=== PATIENT | male | born 1970 | race Caucasian/White ===

== ENCOUNTER → 2016-10-06 | Outpatient (CLI) | payer BC ==
[~2016-10-06] MED LIST: ASPI81TA28 PO; CETI10TA99 PO; MULT-506 PO; OMEG10007 PO; PSEU30TA20 PO
--- NOTE | 2016-10-07 06:22 | PAP/PSG TECHNICIAN REPORT ---
[facility] Order Puller Polysomnogram Report Study name: None Report date: 10/07/2016 Study date: 10/06/2016 Referring Physician: Luis Mcguire M.D. Name: LUIS FRITZ Interpreting Physician: Leon Mcguire M.D. Date of : 1970 Order Puller: YANE Wiley. Sex: Male Age: 46 StudyType: PSG Weight: 199 lbs Height: 46 years, Height 6' 0" Neck Circum:16inches BMI: 26.99 Medications: Sudafed, Loratadine, Vitamins, ASA 81 mg Patient History 46 yr. old male here for a diagnostic sleep study without ETC02 monitoring in room #6. Patient complains of snoring. He had 3 failed HSTs. Neck Circ.= 16 inches. Parameters Monitored NPSG: E1-M2, E2-M1, Fp1-M2, Fp2-M1, F3-M2, F4-M2, F4-M1, C3-M2, C4-M2, C4-M1, O1-M2, O2-M2, O2-M1, T3-M2, T4-M1, P3-M2, P4-M1, CHIN1, CHIN2, HR, EKG, Legs, PFLOW, SNOR, FLOW, CFLOW, Tidal Volume, THOR, ABDO, SpO2, PLTH, CPRESS, ETCO2 Wave, ETCO2, pH Sleep Architecture Sleep Stages Time at Lights Off 9:50:40 PM STAGES Time (min.) TST (%) Time at Lights On 5:32:40 AM Wake 68.5 -- Total Recording Time (TRT) 462.00 min. N1 22.0 6 Total Sleep Period (TSP) 406.0 min. N2 252.5 64 Total Sleep Time (TST) 393.5min. N3 58.0 15 Awake Time 68.5 min. REM 61.0 16 Wake after Sleep Onset 12.5 min. Sleep Efficiency (SE) 85 % Sleep Onset Latency (KIRILL) 56.0 min. Number of Stage 1 Shifts None Awakenings 12 Stage Changes 80 Number of REM periods 10 REM 61.0 16 REM Latency 77.0 min. NREM 332.5 84 Body Position Analysis Supine Right Left Side Prone Vertical Total Sleep Time (min.) 347.1 113.0 0.0 112.99 0.0 0.3 Total Sleep Time (%) 71% 29% 0% 29 0% N/A% Total Sleep Time REM (min.) 14.5 46.5 0.0 None 0.0 0.0 Total Sleep Time NREM (min.) 266.0 66.5 0.0 None 0.0 0.0 Intermittent Wake (min.) 66.6 1.6 0.0 None 0.0 0.3 Total Sleep Period (%) 72% None None None None None Arousals Myoclonus (PLM) * Events Count Index Events Count Index Spontaneous 18 3 Events Awake (PLMW) 73 63.9 Respiratory 12 2.0 Events Asleep w/ Arousal (PLMA) 20 3.0 PLM 20 3 Events Asleep w/o Arousal (PLMS) 79 12.0 Snoring 10 2 Total Asleep 99 15.1 Total 60 9 Total 172 22 Respiratory Analysis * CA OA MA CH H RERA Total Count 0 0 0 0 32 2 32 Index 0.0 0.0 0.0 0 4.9 0 5.2 Mean Duration 0.0 0.0 0.0 0.00 27.5 26.3 27.4 Longest Duration 0.0 0.0 0.0 0.00 0.0 37.6 52.9 Respiratory Event Summary Total Supine ~Supine Right Left Prone REM NREM Apneas Count 0 0 0 0 N/A N/A 0 0 Index 0.0 0 0 0.0 N/A N/A 0 0 Hypopneas (4% Desat) Count 32 22 10 10 N/A N/A 13 19 Index 4.9 4.7 5 5.3 N/A N/A 12.8 3.4 Apneas & All Hypopneas Count 32 22 10 10 N/A N/A 13 19 Index 4.9 5 5 5 N/A N/A 12.8 3.4 Respiratory Events ([employer]+All Hyp+RERA) Count 32 23 11 11 N/A N/A 13 19 Index 5.2 5 6 5.8 N/A N/A 13.8 3.6 Respiratory Related Arousal Count 12 23 4 4 N/A N/A 6 7 Index 2.0 2 2 2 N/A N/A 6 1 Snoring Analysis Supine Right Left Prone REM NREM Total Snore duration 9.5 min Snores count 275 164 N/A N/A 59 380 439 Snore mean duration 1.3 Sec Snores index 59 87 N/A N/A 58.0 68.6 66.9 TST with snoring (%) 2.4% Desaturation Event Summary: Minimum %SpO2 Event Count Mean/Min/Max Duration(sec.) Desaturation Index % Time In Bed > 90 76 30.5 / 10.3 / 55.5 12.3 82.3 86 - 90 3 25.2 / 15.5 / 32.5 2.3 17.5 81 - 85 1 4.8 / 4.8 / 4.8 141.2 0.1 76 - 80 0 N/A 0.0 0.0 71 - 75 0 N/A 0.0 0.0 66 - 70 0 N/A 0.0 0.0 61 - 65 0 N/A 0.0 0.0 56 - 60 0 N/A 0.0 0.0 51 - 55 0 N/A 0.0 0.0 < 50 0 N/A 0.0 0.0 Total REM NREM Awake <50% 0.0 min. 0.0 min. 0.0 min. 0.0 min. 51 - 60% 0.0 min. 0.0 min. 0.0 min. 0.0 min. 61 - 70% 0.0 min. 0.0 min. 0.0 min. 0.0 min. 71 - 80% 0.1 min. 0.0 min. 0.1 min. 0.0 min. 81 - 90% 79.2 min. 12.9 min. 64.6 min. 1.8 min. 91 - 100% 369.6 min. 46.7 min. 258.9 min. 63.9 min. Average 92 92 92 93 Minimum SpO2 78 83 80 78 Desaturation Event Index 10.0 25.6 8.1 5.3 # Desat. Events below 89% 15 8 5 2 Time(%) with Saturation below 89% 1.4 0.8 0.5 0.1 Time(min.) with Saturation below 89% 6.3 3.6 2.4 0.3 Time (mins) REM (mins) NREM (mins) % of TST SpO2 Below 90% 56 21 N35 5.7 SpO2 Below 88% 6 0 0 0 Heart Rate Analysis Min (bpm) Max (bpm) Average (bpm) Awake 55 237 74 NREM 46 127 65 REM 50 127 62 Overall 46 127 65 Supplemental O2 Values Minimum O2 level: None Value Start Time End Time Order Puller Comments Mr. Fritz slept in the right and supine positions. No cardiac arrhythmia noted. Some leg movements were noted. No bruxism noted. Snoring was noted and scored as a 2 on a scale of 1 through 5. (0=no snoring, 5=snoring loud enough to be heard through a closed door or down the terrell way) He did not use the restroom during the night. He stated that he slept a little worse than when at home. The final report will be interpreted and signed by a sleep physician. The completed physician report will then be placed in the patient medical record. Therapy (cm H2O) 0 TIB (min.) 462.0 TST (min.) 393.5 Sleep Onset (min.) 56.0 REM Onset From Sleep (min.) 77.0 Sleep Efficiency % 85 Wakefulness (%) 15 Wakefulness (min.) 68.5 NREM 1 (%) 6 NREM 1 (min.) 22.0 NREM 2 (%) 64 NREM 2 (min.) 252.5 NREM 3 (%) 15 NREM 3 (min.) 58.0 REM (%) 16 REM (min.) 61.0 # Arousals 60 Arousal Index 9 # Snore 439 Snore Index 66.9 AHI 4.9 AHI Supine 5 AHI Non-Supine 5 NREM AHI 3.4 REM AHI 12.8 RDI 5.2 # Obstructive Apnea 0 # Central Apnea 0 # Mixed Apnea 0 # Hypopneas 32 RERAs 2 Total Respiratory Events 37 Time Below SpO2 89% (min.) 6.0 Mean NREM SpO2 (%) 92 Mean REM SpO2 (%) 92 Mean Sleep SpO2 (%) 92 Min NREM SpO2 (%) 80 Min REM SpO2 (%) 83 Position Supine (min.) 347.1 Position Non-supine (min.) 113.0 LM Index Sleep 15.1 LM Index NREM 11.0 LM Index REM 37.4 Mean Heart Rate (bpm) 65 Min Heart Rate (bpm) 46
--- NOTE | 2016-10-12 07:21 | POLYSOMNOGRAPH REPORT ---
REFERRING PERSON: Dr. Gayle Mcguire. SAFETY TECHNICIAN: Anh Tatum. Mr. Peng is a 46-year-old male sent for a diagnostic sleep study without end-tidal CO2. He complains of snoring. He has had 3 home sleep studies which were all nondiagnostic. His [place] Sleepiness Scale score on the evening of this study is not recorded, BMI is 26.99. Following the technical and digital specifications of the [place] [employer] (AASM), a standard diagnostic polysomnogram was performed monitoring EEG, EOG, EMG (chin and leg deviations), oxygen saturation, body position, digital video, respiratory effort and airflow. The sleep Stage and Event scoring was based on the AASM Manual for the Scoring of Sleep and Associated Events, 2007 edition. Apneas are defined as a drop in the peak thermal sensor excursion by >90% of baseline for at least 10 seconds. Hypopneas were scored using the 4% oxygen desaturation rule (4A-[employer]) and a decrease in the nasal pressure excursions by >30% of baseline for at least 10 seconds. Respiratory effort-related arousal (RERA) is defined as a sequence of breaths lasting at least 10 seconds characterized by increasing respiratory effort or flattening of the nasal pressure waveform leading to an arousal from sleep when the sequence of breaths does not meet criteria for an apnea or hypopnea. Apnea Hypopnea index (AHI) is defined as the number of apneas and hypopneas occurring in an hour of sleep. Respiratory disturbance index (RDI) is defined as the number of apneas, hypopneas, and RERAs occurring in an hour of sleep. Mr. Peng's total sleep period time was 406 minutes. Total sleep time was 393.5 minutes. Sleep efficiency was 85%. Latency to sleep onset was 56 minutes with wake after sleep onset of 12.5 minutes. Total non-REM sleep time was 332.5 minutes. He spent 6% of that time in N1 sleep, 64% in N2 sleep, and 15% in N3 sleep. REM latency was 77 minutes. Total REM sleep time was 61 minutes or 16% of total sleep time. There were 60 cortical arousals from sleep. 10 of these arousals were due to snoring, 20 due to periodic limb movements of sleep, and 12 were due to respiratory events. There were 99 periodic limb movements noted on this test. Limb movement index was 15.1, limb movement with arousal index was 3. There were no central, obstructive, or mixed apneas on this test, but 32 hypopneas and 2 RERA. Apnea-hypopnea index was 4.9 with an RDI of 5.2. This is borderline for mild sleep apnea and consistent with upper airway resistance syndrome. There were 439 snoring events recorded. Total sleep time with snoring was 2.4%. Mean saturation during sleep was 92%. There were desaturations briefly to 76% on this test. Saturations were less than 89% for 6.3 minutes of recorded time. This is very mild nocturnal hypoxemia. Heart rate on this study ranged from a low of 46 beats per minute to a high of 127 beats per minute. There was no cardiac ectopy. IMPRESSION AND PLAN: A 46-year-old male without evidence of sleep apnea but upper airway resistance syndrome and some mild nocturnal hypoxemia on this study. 1. An NPO should be performed on room air to confirm hypoxemia in this patient. Oxygen therapy could be considered should these results be confirmed. 2. Oral appliance may in fact help this patient's snoring and he may benefit from a dental referral.
== END | disposition home or self-care (01) ==
LOC: C.NEUR 21:00
PROVIDERS: ATTEND Family Medicine
DX: G47.33 Obstructive sleep apnea (adult) (pediatric) (principal)